=== PATIENT | female | born 1970 | race Caucasian/White ===

== ENCOUNTER 2018-11-01 05:39 | Outpatient (CLI) | payer BC ==
[~2018-11-01] VITALS: Ht 165.1 cm; Wt 76.7 kg
[2018-11-01] MEDS ORDERED: MULT-178 PO (13:08)
[2018-11-01] MEDS ORDERED: LORA10TA76 PO (13:08)
[2018-11-01] MEDS ORDERED: RT-ALBUINH IH (13:08)
[2018-11-01] MEDS ORDERED: ESTR0.5T PO (13:08)
[2018-11-01] MEDS ORDERED: DIPH25CA79 PO (13:08)
[2018-11-01] MEDS ORDERED: LEVO50TA6 PO (13:08)
[2018-11-01] MEDS ORDERED: MONT10TA21 PO (13:08)
[2018-11-01] MEDS ORDERED: FLUT9.9S NS (13:08)
[2018-11-01 13:10] VITALS: BP 122/79
--- NOTE | 2018-11-01 13:41 | Diagnostic Imaging Report ---
INDICATION: Preoperative evaluation for nasal surgery. COMPARISON: None. FINDINGS: Frontal and lateral views of the chest demonstrate normal heart size and pulmonary vascularity. The lungs are clear. There are no signs of infiltrate, pleural effusions or pneumothoraces. The visualized osseous structures show no acute abnormalities. IMPRESSION: 1. No acute process. No signs of infiltrates, effusions or pneumothoraces. Dictated by: Dictated on workstation # [id number]
[2018-11-01 14:06] LABS: BASOPHILS # (AUTO) 0.1 10^3/uL (0.0-0.1); BASOPHILS % (AUTO) 1 % (0-10); EOSINOPHILS # (AUTO) 0.3 10^3/uL (0.0-0.3); EOSINOPHILS % (AUTO) 3 % (0-10); HEMATOCRIT 43 % (35-52); HEMOGLOBIN 14.7 G/DL (11.5-16.0); LYMPHOCYTES # (AUTO) 5.4 X 10^3 (1.0-4.0); LYMPHOCYTES % (AUTO) 43 % (12-44); MEAN CORPUSCULAR HEMOGLOBIN 31 PG (25-34); MEAN CORPUSCULAR HGB CONC 34 G/DL (32-36); MEAN CORPUSCULAR VOLUME 89 FL (80-99); MEAN PLATELET VOLUME 8.8 FL (7.4-10.4); MONOCYTES # (AUTO) 0.7 X 10^3 (0.0-1.0); MONOCYTES % (AUTO) 6 % (0-12); NEUTROPHILS % (AUTO) 48 % (42-75); PLATELET COUNT 369 10^3/uL (130-400); RED CELL DISTRIBUTION WIDTH 13.7 % (10.0-14.5); WHITE BLOOD COUNT 12.5 10^3/uL (4.3-11.0)
[2018-11-01 14:21] LABS: BUN/CREATININE RATIO 21; CALCIUM 8.8 MG/DL (8.5-10.1); CARBON DIOXIDE 28 MMOL/L (21-32); CHLORIDE 106 MMOL/L (98-107); CREATININE SERUM 0.72 MG/DL (0.60-1.30); GFR ESTIMATED > 60; GLUCOSE 89 MG/DL (70-105); POTASSIUM 3.8 MMOL/L (3.6-5.0); SODIUM 141 MMOL/L (135-145)
== END 2018-11-01 16:00 | disposition home or self-care (01) ==
LOC: PREOP 05:39
PROVIDERS: ATTEND Otolaryngology Otolaryngology/Facial Plastic Surgery
DX: Z01.810 Encounter for preprocedural cardiovascular examination (principal); Z01.811 Encounter for preprocedural respiratory examination; Z01.812 Encounter for preprocedural laboratory examination; Z11.2 Encounter for screening for other bacterial diseases; J34.2 Deviated nasal septum; J34.3 Hypertrophy of nasal turbinates
CPT/HCPCS: 36415; 71046; 80048; 85025; 87081; 93005

== ENCOUNTER 2018-11-09 07:29 | Day surgery (SDC) | payer BC ==
[~2018-11-09] VITALS: Ht 165.1 cm; Wt 76.7 kg
[~2018-11-09 07:29] MED LIST: DIPH25CA79 PO; ESTR0.5T PO; FLUT9.9S NS; LEVO50TA6 PO; LORA10TA76 PO; MONT10TA21 PO; MULT-178 PO; RT-ALBUINH IH
[2018-11-09] MEDS ORDERED: FAMOTIDINE 20MG/2ML IV (PEPCID) IV ONE (08:00)
[2018-11-09] MEDS ORDERED: SCOPOLAMINE 1.5 MG (TRANSDERM-SCOP) PATCH TOP ONE (08:00)
[2018-11-09] MEDS ORDERED: ONDANSETRON 4 MG/2 ML (SDV) Z0FRAN IV ONE (08:00)
[2018-11-09] MEDS ORDERED: LEVOFLOXACIN 500 MG/100 ML IV 100 ML IV ONE (08:15)
[2018-11-09] MEDS ORDERED: HYDROCORTISONE 100 MG/2 ML (Solu-CORTEF) VIAL IV ONE (08:15)
[2018-11-09] MEDS: LACTATED RINGERS 1,000 ML IV PRN ×2 (08:21→10:42)
[2018-11-09] MEDS ORDERED: LEVOFLOXACIN 500 MG/100 ML IV 100 ML ONE (08:24)
[2018-11-09] MEDS ORDERED: HYDROCORTISONE 100 MG/2 ML (Solu-CORTEF) VIAL ONE (08:24)
--- NOTE | 2018-11-09 08:40 | Progress Note-Pre Operative ---
Pre-Operative Progress Note H&P Reviewed The H&P was reviewed, patient examined and no changes noted. Date Seen by Provider: Nov 09, 2018 Time Seen by Provider: 08:00 Date H&P Reviewed: Nov 09, 2018 Time H&P Reviewed: 08:00 Pre-Operative Diagnosis: Bilat Chronic Sinusitis, Deviated Nasal Septum, Bialt Hyepr of Inf Turbs ERIKA DUNNE MD Nov 09, 2018 08:40
[2018-11-09 08:43] VITALS: BP 108/61
[2018-11-09] MEDS ORDERED: COCAINE HCL 4% 2 ML SYR ONE (08:47)
[2018-11-09] MEDS ORDERED: BSS 15 ML ONE (08:48)
[2018-11-09] MEDS ORDERED: PHENYLEPHRINE 0.5% NASAL SPR (NEO-SYNEPHRINE) REG ONE (08:48)
[2018-11-09] MEDS ORDERED: LIDOCAINE 1% INJ 20 ML 20 ML VIAL ONE (08:48)
[2018-11-09] MEDS ORDERED: proPOfol 200 MG/20 ML (DIPRIVAN) VIAL IV ONE (08:49)
[2018-11-09] MEDS ORDERED: ONDANSETRON 4 MG/2 ML (SDV) Z0FRAN ONE ×2 (08:49→11:15)
[2018-11-09] MEDS ORDERED: SEVOFLURANE (ULTANE) 15 ML INHAL SOLN ONE ×4 (08:49→11:13)
[2018-11-09] MEDS ORDERED: LIDOCAINE PF 2% 5 ML (XYLOCAINE) VIAL ONE (08:49)
[2018-11-09] MEDS ORDERED: MIDAZOLAM 2 MG/2 ML (VERSED) VIAL ONE (08:50)
[2018-11-09] MEDS ORDERED: ROCURONIUM 10 MG/ML 5 ML SYRINGE IV ONE ×2 (08:50→09:07)
[2018-11-09] MEDS ORDERED: fentaNYL INJECTION 100 MCG/2 ML AMP ONE ×2 (08:50→10:47)
[2018-11-09] MEDS ORDERED: LIDOCAINE JELLY 2% 6 ML SYRINGE ONE (08:59)
[2018-11-09] MEDS ORDERED: D5 1/2 NS W/KCL 20 MEQ/L 1,000 ML IV SCH (10:55)
--- NOTE | 2018-11-09 10:55 | Progress Note-Post Operative ---
Post-Operative Progess Note Surgeon (s)/Staff Toxicologist (s) Surgeon ERIKA DUNNE MD Staff Toxicologist n/a Pre-Operative Diagnosis Bilat Chronic Sinusitis, Deviated Nasal Septum, Bialt Hyepr of Inf Turbs Post-Operative Diagnosis same Post-Op Procedure Note Date of Procedure: Nov 09, 2018 Name of Procedure Performed: Bilat ESS, Nasal Septoplsty, Bilat Red of Inf Turbs Description & Findings Description and Findings: n/a Anesthesia Type get Estimated Blood Loss minimal Packing none. Specimen(s) collected/removed bilat chrinc sinusitis ERIKA DUNNE MD Nov 09, 2018 10:55
[2018-11-09] MEDS ORDERED: predniSONE 20 MG TAB PO ONE (11:00)
[2018-11-09] MEDS ORDERED: ACETAMINOPHEN 325 MG TABLET PO PRN (11:00)
[2018-11-09] MEDS ORDERED: HYDROcodone/APAP 5 MG/325 MG (LORTAB) TAB PO PRN (11:00)
[2018-11-09] MEDS ORDERED: PROMETHAZINE INJ 25 MG/ML (PHENERGAN) AMP IVP PRN (11:00)
[2018-11-09] MEDS ORDERED: NEOSTIGMINE 1 MG/ML 5 ML SYRINGE ONE (11:12)
[2018-11-09] MEDS ORDERED: GLYCOPYRROLATE 0.2 MG/ML (ROBINUL) 2 ML VIAL ONE (11:12)
[2018-11-09] MEDS ORDERED: morphine INJ 10 MG/ML 1ML (SYR OR VIAL) IVP ONE (11:15)
[2018-11-09] MEDS ORDERED: MEPERIDINE (DEMEROL) INJ 50 MG/ML IVP ONE (11:15)
[2018-11-09] MEDS ORDERED: ONDANSETRON 4 MG/2 ML (SDV) Z0FRAN IVP PRN (11:15)
[2018-11-09 12:05] VITALS: BP 128/87
[2018-11-09] MEDS ORDERED: ONDA4TAB11 PO (12:22)
[2018-11-09] MEDS ORDERED: PRD20T PO (12:22)
[2018-11-09] MEDS ORDERED: LEVO500T2 PO (12:22)
[2018-11-09] MEDS ORDERED: HYDR-3812 PO (12:22)
--- NOTE | 2018-11-09 12:27 | Anesthesia-General Post-Op ---
General Patient Condition Mental Status/LOC: Same as Preop Cardiovascular: Satisfactory Nausea/Vomiting: Absent Respiratory: Satisfactory Pain: Controlled Complications: Absent Post Op Complications Complications None Follow Up Care/Instructions Patient Instructions None needed. Anesthesia/Patient Condition Patient Condition Patient is doing well, no complaints, stable vital signs, no apparent adverse anesthesia problems. No complications reported per nursing. THANH ADAMS CRNA Nov 09, 2018 12:27
[2018-11-09 12:35] VITALS: BP 134/77
[2018-11-09 13:05] VITALS: BP 126/95
[2018-11-09 13:40] VITALS: BP 126/95
== END 2018-11-09 13:40 | disposition home or self-care (01) ==
LOC: SDC 07:29
PROVIDERS: ATTEND Otolaryngology Otolaryngology/Facial Plastic Surgery
DX: J32.2 Chronic ethmoidal sinusitis (principal); J32.0 Chronic maxillary sinusitis; J32.3 Chronic sphenoidal sinusitis; J34.2 Deviated nasal septum; J34.3 Hypertrophy of nasal turbinates; J45.909 Unspecified asthma, uncomplicated; F17.210 Nicotine dependence, cigarettes, uncomplicated; Z79.899 Other long term (current) drug therapy; Z88.0 Allergy status to penicillin

== ENCOUNTER → 2019-09-12 | Outpatient (CLI) | payer BC ==
[~2019-09-12] MED LIST changes: +HYDR-3812 PO; +LEVO500T2 PO; +ONDA4TAB11 PO; +PRD20T PO
[2019-09-12 09:38] LABS: ALANINE AMINOTRANSFERASE 12 U/L (0-55); ALKALINE PHOSPHATASE 92 U/L (40-136); BILIRUBIN,TOTAL 0.2 MG/DL (0.1-1.0); BUN/CREATININE RATIO 20; CALCIUM 9.1 MG/DL (8.5-10.1); CARBON DIOXIDE 22 MMOL/L (21-32); CHLORIDE 107 MMOL/L (98-107); CREATININE SERUM 0.65 MG/DL (0.60-1.30); GFR ESTIMATED > 60; GLUCOSE 98 MG/DL (70-105); POTASSIUM 4.2 MMOL/L (3.6-5.0); SODIUM 141 MMOL/L (135-145); TOTAL PROTEIN 6.2 GM/DL (6.4-8.2)
[2019-09-12 09:39] LABS: ALBUMIN 3.8 GM/DL (3.2-4.5)
[2019-09-12 15:29] LABS: CHOLESTEROL 202 MG/DL (< 200); HDL CHOLESTEROL 54 MG/DL (40-60); TRIGLYCERIDES 228 MG/DL (<150); VLDL CHOLESTEROL 46 MG/DL (5-40)
[2019-09-12 15:57] LABS: FREE T4 (FREE THYROXINE) 0.88 NG/DL (0.70-1.48)
== END ==
LOC: LAB FS 08:36
PROVIDERS: ATTEND Family Medicine
DX: R73.03 Prediabetes (principal); R79.89 Other specified abnormal findings of blood chemistry
CPT/HCPCS: 36415; 80053; 80061; 83036; 84439; 84443

== ENCOUNTER → 2020-12-15 | Outpatient (CLI) | payer BC ==
[~2020-12-15] MED LIST changes: +ACHD5005 PO; -HYDR-3812 PO
--- NOTE | 2020-12-15 13:18 | Diagnostic Imaging Report ---
INDICATION: Back injury from falling while rollerskating Lumbar spine AP and lateral views of the lumbar spine shows normal vertebral body height and alignment. Disc spaces well-maintained. There are no fractures seen. IMPRESSION: Unremarkable lumbar spine. Dictated by: Dictated on workstation # [id number]
== END ==
LOC: RAD FS 11:31
PROVIDERS: ATTEND Nurse Practitioner Family
DX: S39.92XA Unspecified injury of lower back, initial encounter (principal); M54.42 Lumbago with sciatica, left side; V00.111A Fall from in-line roller-skates, initial encounter
CPT/HCPCS: 72100